=== PATIENT | female | born 1965 | race African-American/Black ===

== ENCOUNTER 2017-01-17 18:01 | Emergency (ER) | payer SELFPAY ==
[~2017-01-17] VITALS: Ht 172.7 cm; Wt 94.0 kg
[2017-01-17] MEDS ORDERED: BACITRACIN ZINC OINT UDPKT TOP ONE (18:45)
[2017-01-17] MEDS ORDERED: LIDOCAINE HCL 1%/EPI 1:200,000 30 ML VIAL MC ONE (18:45)
[2017-01-17] MEDS ORDERED: TETANUS, DIPHTHERIA, PERTUSSIS VAC/PF 0.5ML (>7YR OLD) IM ONE (18:45)
[2017-01-17 21:00] VITALS: BP 134/85
== END 2017-01-17 21:00 | disposition home or self-care (01) ==
LOC: ER 18:01
DX: S61.412A Laceration without foreign body of left hand, initial encounter (principal); W26.0XXA Contact with knife, initial encounter; Y93.89 Activity, other specified; Y92.010 Kitchen of single-family (private) house as the place of occurrence of the external cause
CPT/HCPCS: 12001; 73130; 99284; A4217; Z7610

== ENCOUNTER 2018-02-02 22:29 | Emergency (ER) | payer BC ==
[~2018-02-02] VITALS: Ht 167.6 cm; Wt 102.0 kg
[2018-02-03] MEDS ORDERED: KETOROLAC 60MG/2ML VIAL IM ONE (05:15)
[2018-02-03 08:21] VITALS: BP 149/65
== END 2018-02-03 08:21 | disposition home or self-care (01) ==
LOC: ER 22:29
DX: M65.312 Trigger thumb, left thumb (principal)
CPT/HCPCS: 29125; 73130; 96372; 99284; J1885; Z7610

== ENCOUNTER 2024-12-15 18:08 | Emergency (ER) | payer BC, MEDICAID ==
[~2024-12-15] VITALS: Ht 165.1 cm; Wt 101.0 kg
[2024-12-15 18:16] VITALS: O2SAT 100
[2024-12-15] MEDS: LIDOCAINE HCL/EPINEPHRINE 1%-EPI 1:100,000 20ML VIAL INFIL ONE (19:30)
[2024-12-15] MEDS: IBUPROFEN 600MG TABLET PO ONE (20:47)
[2024-12-15] MEDS: HYDROCODONE/ACETAMINOPHEN 5/325MG TABLET PO ONE (20:47)
[2024-12-15] MEDS ORDERED: CEPH500C2 MT (21:36)
[2024-12-15] MEDS ORDERED: SULF1TAB48 MT (21:36)
[2024-12-15 22:13] VITALS: BP 121/63; PULSE 87; RESP 14; TEMP 36.8; O2SAT 98
== END 2024-12-15 22:14 | disposition home or self-care (01) ==
LOC: ER 18:08
DX: L02.412 Cutaneous abscess of left axilla (principal); I10 Essential (primary) hypertension; Z90.710 Acquired absence of both cervix and uterus
CPT/HCPCS: 99283; 10060; J2004